=== PATIENT | female | born 1980 | race Caucasian/White ===

== ENCOUNTER → 2017-11-07 | Outpatient (CLI) | payer OTHER ==
[~2017-11-07] MED LIST: BCPILLS; LRT5 PO; NITR-5 PO; SERT25TA PO
== END | disposition home or self-care (01) ==
LOC: C.PAPS 14:07
PROVIDERS: ATTEND Obstetrics & Gynecology
DX: Z12.4 Encounter for screening for malignant neoplasm of cervix (principal)

== ENCOUNTER 2023-02-03 09:17 | Observation (INO) ==
[2023-02-03 09:46] LABS: POC Urine Bilirubin Negative (Negative); POC Urine Blood Negative (Negative); POC Urine Glucose Normal (Normal); POC Urine Ketones Negative (Negative); POC Urine Leukocytes Negative (Negative); POC Urine Nitrite Negative (Negative); POC Urine Protein Trace (Negative); POC Urine Urobilinogen Normal (Normal); POC Urine pH 5 (4.5-7.5)
[2023-02-03 10:02] LABS: Appearance Urine Clear (Clear); Bacteria Urine Automated Negative (Negative); Bilirubin Urine Negative (Negative); Blood Urine Negative (Negative); Color Urine Yellow; Epithelial Cell Urine Auto 20-30 /lpf (0-5); Glucose Urine UA Negative (Negative); Ketones Urine Negative (Negative); Leukocyte Esterase Urine Trace (Negative); Nitrite Urine Negative (Negative); Protein Urine Negative (Negative); RBC Urine Automated 0-4 /hpf (0-4); Specific Gravity Urine 1.008 (1.000-1.030); Urobilinogen Urine Negative (Negative); pH Urine 7.5 (4.5-7.5)
[2023-02-03] MEDS ORDERED: KETOROLAC 30 MG/ML VIAL IV ONE (10:34)
[2023-02-03] MEDS ORDERED: ONDANSETRON INJ 2 MG/ML 2 ML VIAL IV STA (10:34)
[2023-02-03 11:00] LABS: Hematocrit (blood only) 39.3 % (37.0-47.0); Hemoglobin 13.5 g/dl (12.0-16.0); Mean Corpuscular Hgb Conc 34.4 g/dL (32.0-36.0); Mean Corpuscular Volume 96.1 fL (80.0-100.0); Mean Platelet Volume 11.5 fL (9.4-12.4); Platelet Count 176 K/uL (130-400); RDW Coefficient of Variation 12.7 % (11.5-14.5); RDW Standard Deviation 44.8 fL (36.4-46.3); Red Blood Count 4.09 M/uL (4.20-5.40); White Blood Count 8.88 K/ul (4.8-10.8)
[2023-02-03 11:17] LABS: Albumin Globulin Ratio 1.3 (0.9-2); Albumin Level 4.2 gm/dl (3.4-5.0); BUN Creatinine Ratio 17.8 (10-20); Bilirubin,Total 0.8 mg/dl (0.2-1.0); Calcium 9.2 mg/dl (8.6-10.3); Creatinine Clr Calc Pharmacy 89.4 ml/min; Est GFR (African American) 116.9 ml/min; Est GFR (Non-African American) 100.9 ml/min; Globulin 3.2 gm/dl (2.5-4.0); Potassium 3.8 mmol/L (3.5-5.1); Total Protein 7.4 gm/dl (6.0-8.3)
[2023-02-03 11:18] LABS: Basophils # (auto) 0.03 K/uL (0-0.2); Basophils % (auto) 0.3 %; Eosinophils # (auto) 0.09 K/uL (0-0.50); Immature Granulocytes # (auto) 0.01 K/uL (0.01-0.20); Immature Granulocytes % (auto) 0.1 %; Lymphocytes # (auto) 0.23 K/uL (1.2-3.4); Lymphocytes % (auto) 2.6 %; Monocytes # (auto) 0.46 K/uL (0.11-0.59); Monocytes % (auto) 5.2 %; Neutrophils # (auto) 8.06 K/uL (1.40-6.50); Neutrophils % (auto) 90.8 %
--- NOTE | 2023-02-03 11:34 | CT Scan Report ---
ABDOMEN AND PELVIS CT WITHOUT CONTRAST CT DOSE: 569.46 mGy.cm HISTORY: Acute bilateral flank pain. eval right sided pyelo/ stone TECHNIQUE: Multiaxial CT images of the abdomen and pelvis were performed without contrast. A dose lo wering technique was utilized adhering to the principles of ALARA. COMPARISON STUDY: 10/30/2022 FINDINGS: The lung bases are clear. Trace pericardial effusion. The unenhanced liver, spleen, gallbla dder, and pancreas are within normal limits. 1.4 cm partially calcified hypodense right adrenal gland nodule is stable and likely benign. Mild urothelial thickening of the bilateral kidneys and ureters. Lateral perinephric and periureteral stranding. Punctate nonobstructing calculus of the interpolar right kidney. There is a new indetermi edwin 5 mm calcification in the left hemipelvis. Pelvic basin phleboliths. Urinary bladder wall thicke angie with partial distention. IUD of the mid uterus appears to be in satisfactory positioning. 3.1 x 2.7 cm right ovarian cyst. 2.9 cm left ovarian follicle. Trace free pelvic fluid. Colonic diverticulo sis. Normal appendix. No bowel wall thickening or obstruction. Remarkable soft tissues and osseous st ructures. IMPRESSION: 1. Bilateral urothelial thickening with perinephric stranding suspicious for an ascending urinary tra ct infection with pyelonephritis. Correlate with urinalysis. 2. Punctate right renal calculus. Additionally, there is a 5 mm left pelvic basin calcification near the distal left ureter which is likely a phlebolith. A distal ureteral calculus without obstructive u ropathy considered less likely. 3. No bowel obstruction or bowel wall thickening. 4. Colonic diverticulosis. ACT 112: Negative or not required by law. The above report was generated using voice recognition software. It may contain grammatical, syntax o r spelling errors. Electronically signed by: Dhiraj Cardoso M.D. 02/03/2023 11:32 AM
[2023-02-03] MEDS ORDERED: MAGNESIUM HYDROXIDE SUSP 30 ML UDC PO PRN (12:31)
[2023-02-03] MEDS ORDERED: ALUMINUM/MAGNESIUM SUSP 30 ML UDC PO PRN (12:31)
--- NOTE | 2023-02-03 12:38 | History & Physical Report ---
Date of Service February 03, 2023 Assessment & Plan (1) Pyelonephritis: (2) Bilateral flank pain: (3) Nausea: (4) Depression: (5) Tobacco use: Plan Ms. Mei presents with bladder pressure and constant urinary urgency, no pain with micturition, no burning, no visual hematuria; but outpatient urinalysis revealed microhematuria. Yesterday, she reports increased bladder pressure with dull achy pain in the right flank area with some radiation into her groin. Last Saturday, patient had UA as outpatient. Has taken Macrobid in October when he symptoms originally started. She has taken two days of Macrobid so far this time around. No leukocytosis and does not appear toxic. We will keep her NPO, start Cefepime Q12 and Pyridium PRN with pain and symptom control. Urine and blood cultures pending. Will consult Urology. Pyelonephritis: Bilateral flank pain: Nausea: Admit to Med/Surg Tele Known h/o Pyelonephritis; follows with [facility] Urology R > L flank pain Abdominal/pelvic CT: bilateral urothelial thickening with perinephric stranding suspicious for an ascending urinary tract infection with pyelonephritis. Correlate with urinalysis. Punctate right renal calculus. Additionally, there is a 5 mm left pelvic basin calcification near the distal left ureter which is likely a phlebolith. A distal ureteral calculus without obstructive uropathy considered less likely. No bowel obstruction or bowel wall thickening. Colonic diverticulosis. No leukocytosis; does not appear toxic Urine and blood cultures pending NPO for now cefepime every 12 for complicated UTI IVF @ 60mL/hour x2 bags Pyridium as needed Antiemetics as needed Urology consult placed Depression and anxiety: Takes Sertraline; continue Has medical marijuana for anxiety Tobacco Use: Smokes cigarettes 1 pack/day Recently stopped using Chantix as she felt it was contributing to her symptoms Receptive of nicotine patch; ordered Disposition: PCP: Dr. Michael CODE STATUS: Full code VTE prophylaxis: Lovenox SQ I spent a total of 87 minutes coordinating, documenting, and providing care for this patient excluding time spent in the performance of separately billed services. All of the aforementioned completed while collaborating with the assigned attending physician for a full treatment plan. Please see their addendum for further details. History of Present Illness Chief Complaint: pyelopnephritis Primary Care Provider: Fernanda Linn PA-C Ms. Mei is a 42 year old female that presented to the [facility] today with bladder pressure and constant urinary urgency, no pain with micturition, no burning, no visual hematuria; but outpatient urinalysis revealed microhematuria. Yesterday, she reports increased bladder pressure with dull achy pain in the right flank area with some radiation into her groin. Reports chills, but no reported fever. Denies nocturia, polyuria. Describes weak stream urination and delayed emptying and bladder retention. Last Saturday, patient had UA as outpatient. Has taken Macrobid in October when he symptoms originally started. She has taken two days of Macrobid so far as an outpatient. One episode of diarrhea a few days ago, otherwise normal bowel consistency. Patient has a known history of pyelonephritis and microscopic hematuria. She follows with [facility] urology with her last appointment on 01/25/2023. She was having unresolved recurrent urinary tract infections which has started back in August with pyelonephritis in October. Conservative measures have been recommended as an outpatient including increasing hydration, maintaining good hygiene, routine bowel regimen. Cystoscopy was discussed but not performed as of date. Patient denies MURPHY, dizziness, SOB, chest pain, palpitations, nausea, vomiting, diarrhea, visual or auditory changes, no recent falls or trauma. Pt did receive Torodol in the ED with relief. Today, abdominal and pelvic CT revealed bilateral urothelial thickening with perinephric stranding suspicious for an ascending urinary tract infection with pyelonephritis. Correlate with urinalysis. Punctate right renal calculus. Additionally, there is a 5 mm left pelvic basin calcification near the distal left ureter which is likely a phlebolith. A distal ureteral calculus without obstructive uropathy considered less likely. No bowel obstruction or bowel wall thickening. Colonic diverticulosis. No leukocytosis and does not appear toxic. We will keep her NPO, start Cefepime Q12 and Pyridium PRN with pain and symptom control. Urine and blood cultures pending. Will consult Urology. Pt currently smokes 1 ppd cigarettes. She uses medical marijuana for anxiety. She denies alcohol use. Pt recently discontinued using Chantix as she felt it may be contributing to her symptoms. Pt is sitting upright in her hospital bed in no apparent distress. She was accompanied by her , Murali, and is able to appropriately answer all questions. On examination, she Patient will be admitted to the hospital for further available and management. Allergies Allergy/AdvReac Type Severity Reaction Status Date / Time No Known Drug Allergies Allergy Verified 01/25/23 12:02 Home Medications Medication Instructions Recorded Confirmed Type levonorgestrel 21 mcg/24 hours (8 1 device intrauterine DIRECTED 03/26/19 02/03/23 History yrs) 52 mg intrauterine device (Mirena) sertraline 100 mg tablet 100 mg PO DAILY 09/24/22 02/03/23 History hydrocodone 5 mg-acetaminophen 325 1 - 2 tab PO Q6H PRN pain #20 tabs 10/30/22 02/03/23 Rx mg tablet ondansetron 4 mg disintegrating 4 mg PO Q6H PRN nausea and 10/30/22 02/03/23 Rx tablet vomiting #20 tabs nitrofurantoin 100 mg PO BID 7 days #14 caps 01/31/23 02/03/23 Rx monohydrate/macrocrystals 100 mg capsule (Macrobid) varenicline 1 mg tablet 1 mg PO DIRECTED 02/03/23 02/03/23 History Past Med/Surg History Medical History Anemia Anxiety Bronchitis Depression Nausea Tobacco use Surgical History History of dental surgery [place] teeth extracted Family History Father Bone cancer Prostate cancer Hypertension Sister Endometriosis Hypertension Aunt Breast cancer maternal Hypertension Mother Hypertension Other Alcoholism Depression Osteoporosis Denies family history of Ovarian cancer Colorectal cancer Social History Smoking Status: Current every day smoker Age Started Using Tobacco: 18; packs per day: 1; Do You Dip or Chew Tobacco: No; Hx Alcohol Use: Yes Preferred Language: Sinhala Communication Ability: Effective marital status: Current Living Situation: Spouse current occupational status: employed 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 Feels Safe at Home: Yes Review of Systems Review of Systems: Neuro: (-) Falls, trauma, slurred speech HEENT: (-) MURPHY, dizziness, dysphagia, visual or auditory changes CV: (-) CP, palpitations, swelling Resp: (-) SOB GI: (-) appetite changes, N/V/D, bowel changes : (+) urinary changes (-) Nocturia, (+) polyuria, (+) delayed emptying with some feelings of bladder retention Skin: (-) rashes Psych: (-) anxiety, depression Physical Exam Physical Exam: Neuro: AAOx4, PERRLA, no aphagia, memory changes, CNII-XII grossly intact HEENT: head normocephalic, moist mucus membranes CV: S1/S2, (-) M/G/R, (-) edema, cap refill < 3 seconds Resp: Lungs CTA in all rob. On RA GI: Abdomen S/NT/ND, Ax4 bowel sounds, (+) CVA tenderness on right Musculoskeletal: 5/5 B/L UE strength, 5/5 B/L LE strength. No gait disturbance Skin: (-) rashes , (-) erythema. Psych: euthymic mood Results & Data Results & Data Vital Signs (Past 12 Hours) Vital Signs Temp Pulse Pulse Resp BP BP Pulse Ox 02/03/23 12:06 66 02/03/23 10:50 75 20 122/66 98 02/03/23 10:40 98 02/03/23 09:24 37.1 C 84 20 120/73 100 O2 Del Method 02/03/23 12:06 02/03/23 10:50 Room Air 02/03/23 10:40 Room Air 02/03/23 09:24 Room Air Laboratory Results Short CBC 02/03/23 Range/Units 10:41 WBC 8.88 (4.8-10.8) K/ul Hgb 13.5 (12.0-16.0) g/dl Hct 39.3 (37.0-47.0) % Plt Count 176 (130-400) K/uL BMP 02/03/23 10:41 Sodium 137 Potassium 3.8 Chloride 105 Carbon Dioxide 25 BUN 13 Creatinine 0.73 Glucose 96 Calcium 9.2 Liver Function 02/03/23 Range/Units 10:41 Total Bilirubin 0.8 (0.2-1.0) mg/dl AST 12 L (13-39) U/L ALT 11 (7-52) U/L Alkaline Phosphatase 61 (34-104) U/L Albumin 4.2 (3.4-5.0) gm/dl Urine 07/09/23 Range/Units 09:36 Urine Color Yellow Urine Appearance Clear (Clear) Urine pH 7.5 (4.5-7.5) Ur Specific [place] 1.008 (1.000-1.030) Urine Protein Negative (Negative) Urine Glucose (UA) Negative (Negative) Diagnostic Findings Abdomen/Pelvis CT 02/03/23 10:[address] WITHOUT CONTRAST CT DOSE: 569.46 mGy.cm HISTORY: Acute bilateral flank pain. eval right sided pyelo/ stone TECHNIQUE: Multiaxial CT images of the abdomen and pelvis were performed without contrast. A dose lowering technique was utilized adhering to the principles of ALARA. COMPARISON STUDY: 10/30/2022 FINDINGS: The lung bases are clear. Trace pericardial effusion. The unenhanced liver, spleen, gallbladder, and pancreas are within normal limits. 1.4 cm partially calcified hypodense right adrenal gland nodule is stable and likely benign. Mild urothelial thickening of the bilateral kidneys and ureters. Lateral perinephric and periureteral stranding. Punctate nonobstructing calculus of the interpolar right kidney. There is a new indeterminate 5 mm calcification in the left hemipelvis. Pelvic basin phleboliths. Urinary bladder wall thickening with partial distention. IUD of the mid uterus appears to be in satisfactory positioning. 3.1 x 2.7 cm right ovarian cyst. 2.9 cm left ovarian follicle. Trace free pelvic fluid. Colonic diverticulosis. Normal appendix. No bowel wall thickening or obstruction. Remarkable soft tissues and osseous structures. IMPRESSION: 1. Bilateral urothelial thickening with perinephric stranding suspicious for an ascending urinary tract infection with pyelonephritis. Correlate with urinalysis. 2. Punctate right renal calculus. Additionally, there is a 5 mm left pelvic basin calcification near the distal left ureter which is likely a phlebolith. A distal ureteral calculus without obstructive uropathy considered less likely. 3. No bowel obstruction or bowel wall thickening. 4. Colonic diverticulosis. ACT 112: Negative or not required by law. The above report was generated using voice recognition software. It may contain grammatical, syntax or spelling errors. Electronically signed by: Dhiraj Cardoos M.D. 02/03/2023 11:32 AM Code Status & VTE Plan Code Status Full Code in the event of cardiac or respiratory arrest VTE Prophylaxis Plan VTE Prophylaxis will be ordered: Yes Supervising Physician Co-Signing Physician Notes Patient is a 42-year-old female with history of mood disorder and no other significant past medical history presents with history of flank pain predominantly on right side radiating to groin, bladder pressure, associated chills, weak urinary flow. Patient was evaluated by urology as outpatient and was started on Macrobid for possible UTI 2 days ago and was supposed to have elective cystoscopy for multiple UTIs since October. Please review HPI for complete details of presentation. On exam patient is moderately built and nourished, no apparent distress, normocephalic/atraumatic, EOMI, normal breath sounds, clear to auscultation, S1-S2, no murmur, no pedal edema, abdomen soft, right flank tenderness present, alert, awake, oriented, grossly no focal deficits. I personally reviewed imaging studies, blood work. Acute pyelonephritis, distal ureteral calculi without obstructive uropathy. Started on broad-spectrum antibiotics, IV fluids pain control. Urology consulted. Obtain blood cultures. I personally reviewed the record. Patient is interviewed and examined at bedside. Patient's care is coordinated with Mary BAUGH. Please refer to the documentation above for details of patient's presentation and for discussion of other issues.
[2023-02-03] MEDS ORDERED: PHENAZOPYRIDINE HCL 200 MG TAB PO PRN (12:57)
--- NOTE | 2023-02-03 13:25 | Emergency Department Note ---
Impression & Plan Pyelonephritis Admit to the [facility] ED Provider Note NAME: DIONI SLAUGHTER AGE: 42 SEX: F ARRIVES VIA: Walk-In INFORMANT: Patient and her significant other ED PROVIDER(S): Jen Leyva DO CHIEF COMPLAINT: Nausea and right-sided back PLAN: Disposition: Admit to the [facility] Condition: Good MEDICAL DECISION MAKING: This is a 42-year-old female patient who presents to the emergency department with nausea, chills and right-sided back pain despite taking Macrobid for a d iagnosed urinary tract infection. Patient has no significant leukocytosis or anemia. Renal function tests were normal. There is no evidence of acute kidney injury. CT scan shows evidence of bilateral a sending urinary tract infection into both ureters. Patient will require IV antibiotics as she is failing outpatient oral antibiotic treatment. Patient was treated with IV fluids and IV pain medication and I discussed the case with the [facility] and they will choose IV antibiotic coverage. Triage Nursing notes reviewed and agree with them. [Additional history obtained from] her significant other who is at the bedside External medical records were reviewed including urology notes as an outpatient Vital Signs: reviewed and unremarkable Differential diagnosis: Sepsis, pyelonephritis, cystitis ER treatment provided: IV normal saline IV Toradol Diagnostics interpreted by me: Cardiac Monitoring: Normal sinus rhythm at a rate of 74 Laboratory studies: See below Imaging studies: As per radiology CT scan of the abdomen/pelvis: See report HPI: 42/F arrives for evaluation of nausea and right-sided back. Patient was diagnosed with a UTI 2 days ago and started on Macrobid by urology. She was evaluated by urology because of recurrent urinary tract infections PAST MEDICAL HISTORY:Frequent UTIs since October PAST SURGICAL HISTORY:See Below FAMILY HISTORY:See Below SOCIAL HISTORY:See Below HOME MEDICATIONS: See list ALLERGIES: None VITALS:See Below PHYSICAL EXAMINATION: HEENT: Head - normocephalic and atraumatic. Pupils are equal, round, and reac tive to light. Extraocular eye muscles are intact, and sclera are anicteric. Nose - moist nasal mucosa without discharge. Mouth - moist buccal mucosa. Oropharynx is nonerythematous and there is no tonsillar exudate or edema noted. Neck: Supple; no cervical lymphadenopathy Heart: Regular rate and rhythm. There is a normal S1 and S2 with no murmurs, clicks, or gallops appreciated. Lungs: Clear to auscultation bilaterally with no wheezes, rales, or rhonchi. Abdomen: Soft, completely nontender, nondistended, with good bowel sounds. There are no palpable pulsatile masses or hepatosplenomegaly. There is no guarding, rigidity, or rebound noted. Extremities: No evidence of cyanosis, clubbing, or edema. There are easily palpable peripheral pulses. Skin: warm and dry with good turgor and no rashes. Back: Mild/moderate right CVA tenderness ED COURSE: Times/Reassessments: 9:50: Patient was evaluated in room A-3. Complete history and physical was performed. An IV lock was initiated and labs were drawn as above. Urine specimen was collected. The patient was bolused with IV normal saline and given a dose of IV Toradol for her right-sided back pain. Patient went for CT scan of the abdomen/pelvis. I reviewed the results with the patient And her significant other. I discussed the case with the [facility] and they will evaluate for further management and order IV antibiotics. Jen Leyva DO Past Med/Surg History Medical History Anemia Anxiety Bronchitis Depression Nausea Tobacco use Surgical History History of dental surgery [place] teeth extracted Family History Father Bone cancer Prostate cancer Hypertension Sister Endometriosis Hypertension Aunt Breast cancer maternal Hypertension Mother Hypertension Other Alcoholism Depression Osteoporosis Denies family history of Ovarian cancer Colorectal cancer Social History Smoking Status: Current every day smoker Age Started Using Tobacco: 18; packs per day: 1; Do You Dip or Chew Tobacco: No; Hx Alcohol Use: No Preferred Language: [place] Island[place] Communication Ability: Effective Clinical Lab Clerk Required: No Beliefs That Will Affect Care: None marital status: Current Living Situation: Spouse current occupational status: employed 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 Feels Safe at Home: Yes Safety Concerns: Feels Safe At This Time Allergies Allergies Allergy/AdvReac Type Severity Reaction Status Date / Time No Known Drug Allergies Allergy Verified 01/25/23 12:02 Home Meds Home Medications Medication Instructions Recorded Confirmed levonorgestrel 21 mcg/24 hours (8 1 device intrauterine DIRECTED 03/26/19 02/03/23 yrs) 52 mg intrauterine device (Mirena) sertraline 100 mg tablet 100 mg PO DAILY 09/24/22 02/03/23 varenicline 1 mg tablet 1 mg PO DIRECTED 02/03/23 02/03/23 Previous Rx's Medication Instructions Recorded hydrocodone 5 mg-acetaminophen 325 1 - 2 tab PO Q6H PRN pain #20 tabs 10/30/22 mg tablet ondansetron 4 mg disintegrating 4 mg PO Q6H PRN nausea and 10/30/22 tablet vomiting #20 tabs nitrofurantoin 100 mg PO BID 7 days #14 caps 01/31/23 monohydrate/macrocrystals 100 mg capsule (Macrobid) Results & Data (ED) Vital Signs Vital Signs - 24 hr 02/03/23 09:24 02/03/23 10:40 02/03/23 10:50 Temperature 37.1 C Temperature Source Temporal Artery Scan Pulse Rate 84 Pulse Rate [Apical] 75 Respiratory Rate 20 20 Respiratory Effort / Characteristics Non-Labored Respiratory Depth Normal Normal Blood Pressure 120/73 Blood Pressure [Right Arm] 122/66 Blood Pressure Mean 88 Blood Pressure Mean [Right Arm] 84 Blood Pressure Position Sitting Pulse Oximetry 100 98 98 Oxygen Delivery Method Room Air Room Air Room Air Sepsis Recent Fever Within 48 Hours No Sepsis New/Unexplained Change in Mental Status No Sepsis Action Taken by Nursing No Action Required 02/03/23 12:06 02/03/23 12:30 Temperature Temperature Source Pulse Rate 66 Pulse Rate [Apical] 73 Respiratory Rate 18 Respiratory Effort / Characteristics Respiratory Depth Blood Pressure Blood Pressure [Right Arm] 100/54 L Blood Pressure Mean Blood Pressure Mean [Right Arm] 69 Blood Pressure Position Pulse Oximetry 97 Oxygen Delivery Method Room Air Sepsis Recent Fever Within 48 Hours Sepsis New/Unexplained Change in Mental Status Sepsis Action Taken by Nursing Laboratory Data 02/03/23 10:41 02/03/23 10:41 Lab Results 02/03/23 02/03/23 02/03/23 Range/Units 09:36 09:36 09:36 WBC (4.8-10.8) K/ul RBC (4.20-5.40) M/uL Hgb (12.0-16.0) g/dl Hct (37.0-47.0) % MCV (80.0-100.0) fL MCH (25.0-34.0) pg MCHC (32.0-36.0) g/dL RDW Std Deviation (36.4-46.3) fL RDW Coeff of Naif (11.5-14.5) % Plt Count (130-400) K/uL MPV (9.4-12.4) fL Immature Gran % (Auto) % Neut % (Auto) % Lymph % (Auto) % Morton % (Auto) % Eos % (Auto) % Baso % (Auto) % Neut # (Auto) (1.40-6.50) K/uL Lymph # (Auto) (1.2-3.4) K/uL Morton # (Auto) (0.11-0.59) K/uL Eos # (Auto) (0-0.50) K/uL Baso # (Auto) (0-0.2) K/uL Immature Gran # (Auto) (0.01-0.20) K/uL Sodium (136-145) mmol/L Potassium (3.5-5.1) mmol/L Chloride (98-107) mmol/L Carbon Dioxide (21-32) mmol/L Anion Gap (3-11) BUN (6-23) mg/dl Creatinine (0.6-1.2) mg/dl Est Cr Clr Drug Dosing ml/min Est GFR ( Amer) ml/min Est GFR (Non-Af Amer) ml/min BUN/Creatinine Ratio (10-20) Glucose (70-99(Fasting)) mg/dl Calcium (8.6-10.3) mg/dl Total Bilirubin (0.2-1.0) mg/dl AST (13-39) U/L ALT (7-52) U/L Alkaline Phosphatase (34-104) U/L Total Protein (6.0-8.3) gm/dl Albumin (3.4-5.0) gm/dl Globulin (2.5-4.0) gm/dl Albumin/Globulin Ratio (0.9-2) Lipase (11-82) U/L Urine Color Yellow Urine Appearance Clear (Clear) Urine pH 7.5 (4.5-7.5) POC Urine pH 5 (4.5-7.5) Ur Specific [place] 1.008 (1.000-1.030) Urine Protein Negative (Negative) POC Urine Protein Trace H (Negative) Urine Glucose (UA) Negative (Negative) POC Ur Glucose (UA) Normal (Normal) Urine Ketones Negative (Negative) POC Urine Ketones Negative (Negative) Urine Blood Negative (Negative) POC Urine Blood Negative (Negative) Urine Nitrite Negative (Negative) POC Urine Nitrite Negative (Negative) Urine Bilirubin Negative (Negative) POC Urine Bilirubin Negative (Negative) Urine Urobilinogen Negative (Negative) POC Urine Urobilinogen Normal (Normal) Ur Leukocyte Esterase Trace H (Negative) POC U Leukocyte Esteras Negative (Negative) Urine WBC (Auto) 1-5 (0-5) /hpf Urine RBC (Auto) 0-4 (0-4) /hpf U Hyaline Cast (Auto) 1-5 (0-5) /lpf U Epithel Cells (Auto) 20-30 H (0-5) /lpf Urine Bacteria (Auto) Negative (Negative) POC Ur Test NEG (NEG) SARS-CoV-2, RNA, NAAT (NEGATIVE) 02/03/23 02/03/23 02/03/23 Range/Units 10:41 10:41 13:50 WBC 8.88 (4.8-10.8) K/ul RBC 4.09 L (4.20-5.40) M/uL Hgb 13.5 (12.0-16.0) g/dl Hct 39.3 (37.0-47.0) % MCV 96.1 (80.0-100.0) fL MCH 33.0 (25.0-34.0) pg MCHC 34.4 (32.0-36.0) g/dL RDW Std Deviation 44.8 (36.4-46.3) fL RDW Coeff of Naif 12.7 (11.5-14.5) % Plt Count 176 (130-400) K/uL MPV 11.5 (9.4-12.4) fL Immature Gran % (Auto) 0.1 % Neut % (Auto) 90.8 % Lymph % (Auto) 2.6 % Morton % (Auto) 5.2 % Eos % (Auto) 1.0 % Baso % (Auto) 0.3 % Neut # (Auto) 8.06 H (1.40-6.50) K/uL Lymph # (Auto) 0.23 L (1.2-3.4) K/uL Morton # (Auto) 0.46 (0.11-0.59) K/uL Eos # (Auto) 0.09 (0-0.50) K/uL Baso # (Auto) 0.03 (0-0.2) K/uL Immature Gran # (Auto) 0.01 (0.01-0.20) K/uL Sodium 137 (136-145) mmol/L Potassium 3.8 (3.5-5.1) mmol/L Chloride 105 (98-107) mmol/L Carbon Dioxide 25 (21-32) mmol/L Anion Gap 7 (3-11) BUN 13 (6-23) mg/dl Creatinine 0.73 (0.6-1.2) mg/dl Est Cr Clr Drug Dosing 89.4 ml/min Est GFR ( Amer) 116.9 ml/min Est GFR (Non-Af Amer) 100.9 ml/min BUN/Creatinine Ratio 17.8 (10-20) Glucose 96 (70-99(Fasting)) mg/dl Calcium 9.2 (8.6-10.3) mg/dl Total Bilirubin 0.8 (0.2-1.0) mg/dl AST 12 L (13-39) U/L ALT 11 (7-52) U/L Alkaline Phosphatase 61 (34-104) U/L Total Protein 7.4 (6.0-8.3) gm/dl Albumin 4.2 (3.4-5.0) gm/dl Globulin 3.2 (2.5-4.0) gm/dl Albumin/Globulin Ratio 1.3 (0.9-2) Lipase 12 (11-82) U/L Urine Color Urine Appearance (Clear) Urine pH (4.5-7.5) POC Urine pH (4.5-7.5) Ur Specific [place] (1.000-1.030) Urine Protein (Negative) POC Urine Protein (Negative) Urine Glucose (UA) (Negative) POC Ur Glucose (UA) (Normal) Urine Ketones (Negative) POC Urine Ketones (Negative) Urine Blood (Negative) POC Urine Blood (Negative) Urine Nitrite (Negative) POC Urine Nitrite (Negative) Urine Bilirubin (Negative) POC Urine Bilirubin (Negative) Urine Urobilinogen (Negative) POC Urine Urobilinogen (Normal) Ur Leukocyte Esterase (Negative) POC U Leukocyte Esteras (Negative) Urine WBC (Auto) (0-5) /hpf Urine RBC (Auto) (0-4) /hpf U Hyaline Cast (Auto) (0-5) /lpf U Epithel Cells (Auto) (0-5) /lpf Urine Bacteria (Auto) (Negative) POC Ur Test (NEG) SARS-CoV-2, RNA, NAAT NEGATIVE (NEGATIVE) Administered Medications Enoxaparin Sodium (Enoxaparin Inj 40 Mg/0.4 Ml Syr) 40 mg SQ QAM [facility] Stop: 03/05/23 13:14 Last Admin: 02/03/23 14:24 Dose: 40 mg Documented By: TIGRE Sodium Chloride (Nss 1000ml) 1,000 mls @ 100 mls/hr IV .Q10H [facility] Stop: 02/04/23 09:08 Last Admin: 02/03/23 14:24 Dose: 100 mls/hr Documented By: TIGRE Cefepime HCl 2,000 mg/ Syringe 20 mls @ 5 mls/min IV Q12H [facility]; Protocol Stop: 02/13/23 13:29 Last Admin: 02/03/23 14:24 Dose: 5 mls/min Documented By: TIGRE Nicotine (Nicotine 14 Mg/24 Hr Patch) 14 mg TD QAM [facility] Stop: 03/05/23 13:14 Last Admin: 02/03/23 14:23 Dose: 14 mg Documented By: TIGRE Discontinued Medications Ketorolac Tromethamine (Ketorolac 30 Mg/Ml Vial) 30 mg IV NOW ONE Stop: 02/03/23 10:35 Last Admin: 02/03/23 10:50 Dose: 30 mg Documented By: RICKY Ondansetron HCl (Ondansetron Inj 2 Mg/Ml 2 Ml Vial) 4 mg IV NOW STA Stop: 02/03/23 10:35 Last Admin: 02/03/23 10:51 Dose: 4 mg Documented By: RICKY Imaging Data Radiologist's Impression: Abdomen/Pelvis CT 02/03/23 10:[address] WITHOUT CONTRAST CT DOSE: 569.46 mGy.cm HISTORY: Acute bilateral flank pain. eval right sided pyelo/ stone TECHNIQUE: Multiaxial CT images of the abdomen and pelvis were performed without contrast. A dose lowering technique was utilized adhering to the principles of ALARA. COMPARISON STUDY: 10/30/2022 FINDINGS: The lung bases are clear. Trace pericardial effusion. The unenhanced liver, spleen, gallbladder, and pancreas are within normal limits. 1.4 cm partially calcified hypodense right adrenal gland nodule is stable and likely benign. Mild urothelial thickening of the bilateral kidneys and ureters. Lateral perinephric and periureteral stranding. Punctate nonobstructing calculus of the interpolar right kidney. There is a new indeterminate 5 mm calcification in the left hemipelvis. Pelvic basin phleboliths. Urinary bladder wall thickening with partial distention. IUD of the mid uterus appears to be in satisfactory positioning. 3.1 x 2.7 cm right ovarian cyst. 2.9 cm left ovarian follicle. Trace free pelvic fluid. Colonic diverticulosis. Normal appendix. No bowel wall thickening or obstruction. Remarkable soft tissues and osseous structures. IMPRESSION: 1. Bilateral urothelial thickening with perinephric stranding suspicious for an ascending urinary tract infection with pyelonephritis. Correlate with urinalysis. 2. Punctate right renal calculus. Additionally, there is a 5 mm left pelvic basin calcification near the distal left ureter which is likely a phlebolith. A distal ureteral calculus without obstructive uropathy considered less likely. 3. No bowel obstruction or bowel wall thickening. 4. Colonic diverticulosis. ACT 112: Negative or not required by law. The above report was generated using voice recognition software. It may contain grammatical, syntax or spelling errors. Electronically signed by: Dhiraj Cardoso M.D. 02/03/2023 11:32 AM Discharge Plan Visit Data Chief Complaint: Urinary Symptoms Stated Complaint: UTI - WORSENING SYMPTOMS ED Provider: Jen Leyav Discharge Problem: Pyelonephritis Patient Disposition: Admitted As Inpatient Discharge Instructions Interventions: ED Discharge Assessment Last Done: 02/03/23 14:53
[2023-02-03] MEDS: NICOTINE 14 MG/24 HR PATCH TD SCH (14:23)
[2023-02-03] MEDS: SODIUM CHLORIDE 0.9% 1000ML 1,000 ML IV SCH (14:24)
[2023-02-03] MEDS: CEFEPIME 2,000 MG in SYRINGE 0 ML IV SCH (14:24)
[2023-02-03] MEDS: ENOXAPARIN INJ 40 MG/0.4 ML SYR SQ SCH (14:24)
--- NOTE | 2023-02-03 19:40 | Urology Consultation ---
Date of Consultation February 03, 2023 Assessment & Plan (1) Nephrolithiasis: Plan Distal left ureteral calculus; history of UTI-like symptoms and question of possible pyelonephritis earlier this year Lengthy discussion today with the patient and her She is currently hemodynamically stable I believe the best plan would be to address her stone first Given the lack of current clinical signs and symptoms of pyelonephritis, I would be interested to see if her symptoms improve after stone treatment It is interesting that the majority of her symptoms seem to be right-sided despite her left ureteral calculus, I have explained that there is a possibility that she could still harbor underlying inflammation of the right collecting system She has been on Keflex and MacrobidI have discussed that neither of those has particularly excellent urinary tissue penetration and even after stone treatment she may require an extended course of antibiotics that has better penetrationCipro, Bactrim History of Present Illness Attending Physician: Daniel Coe MD History of Present Illness 42-year-old female who relates an interesting urological history Over the past several months she has been experiencing intermittent urinary tract infection-like symptoms as well as concern for possible ascending infection with associated fevers and chills She was seen in the emergency room in October and treated with antibiotics for presumed pyelonephritis She thought she had improved, however she had recurrence of urinary tract infection-like symptoms shortly thereafter Was then treated again with some improvement She had her first urological evaluation 48 hours agothe plan at that time was to complete a full work-up including imaging and cystoscopy, however, she developed significant symptoms and presented to the emergency room In October she had a CT which showed some urothelial thickening and minor inflammation She also appeared to have a mid left ureteral calculus at that time, however, she has bilateral ovarian cysts and following her ureters was somewhat challengingI suspect the stone was simply missed on that CT Repeat CT now shows distal migration of that left ureteral calculus Her UA is relatively unremarkable She does not have a leukocytosis She is hemodynamically stable and afebrile Her creatinine is appropriate She is currently on cefepime Allergies Allergy/AdvReac Type Severity Reaction Status Date / Time No Known Drug Allergies Allergy Verified 01/25/23 12:02 Home Medications Medication Instructions Recorded Confirmed Type levonorgestrel 21 mcg/24 hours (8 1 device intrauterine DIRECTED 03/26/19 02/03/23 History yrs) 52 mg intrauterine device (Mirena) sertraline 100 mg tablet 100 mg PO DAILY 09/24/22 02/03/23 History hydrocodone 5 mg-acetaminophen 325 1 - 2 tab PO Q6H PRN pain #20 tabs 10/30/22 02/03/23 Rx mg tablet ondansetron 4 mg disintegrating 4 mg PO Q6H PRN nausea and 10/30/22 02/03/23 Rx tablet vomiting #20 tabs nitrofurantoin 100 mg PO BID 7 days #14 caps 01/31/23 02/03/23 Rx monohydrate/macrocrystals 100 mg capsule (Macrobid) varenicline 1 mg tablet 1 mg PO DIRECTED 02/03/23 02/03/23 History Patient History Medical History Anemia Anxiety Bronchitis Depression Nausea Tobacco use Surgical History History of dental surgery [place] teeth extracted Family History Father Bone cancer Prostate cancer Hypertension Sister Endometriosis Hypertension Aunt Breast cancer maternal Hypertension Mother Hypertension Other Alcoholism Depression Osteoporosis Denies family history of Ovarian cancer Colorectal cancer Social History Smoking Status: Current every day smoker Age Started Using Tobacco: 18; packs per day: 1; Do You Dip or Chew Tobacco: No; Hx Alcohol Use: No Preferred Language: [place] Communication Ability: Effective Senior Network Engineer Required: No Beliefs That Will Affect Care: None marital status: Current Living Situation: Spouse current occupational status: employed 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 Feels Safe at Home: Yes Safety Concerns: Feels Safe At This Time Physical Exam Physical Exam: Right greater than left CVA tenderness and suprapubic tenderness Constitutional: well developed and well nourished Respiratory: no respiratory distress Cardiovascular: Extremities: no pedal edema Gastrointestinal (Abdomen): Inspection/Auscultation: abdomen normal to inspection Results & Data Vital Signs (Past 12 Hours) Vital Signs Temp Pulse Pulse Resp BP BP Pulse Ox 02/03/23 15:51 71 02/03/23 15:48 02/03/23 15:28 37.2 C 64 18 115/67 99 02/03/23 14:10 62 18 103/66 100 02/03/23 12:30 73 18 100/54 L 97 02/03/23 12:06 66 02/03/23 10:50 75 20 122/66 98 02/03/23 10:40 98 02/03/23 09:24 37.1 C 84 20 120/73 100 O2 Del Method 02/03/23 15:51 02/03/23 15:48 Room Air 02/03/23 15:28 Room Air 02/03/23 14:10 Room Air 02/03/23 12:30 Room Air 02/03/23 12:06 02/03/23 10:50 Room Air 02/03/23 10:40 Room Air 02/03/23 09:24 Room Air PG Care Time/CCT Total # of Minutes Spent Total Time Spent with Patient: Total time spent is greater than 50% in coordination of care (as documented) at patient's floor/unit and/or counseling patient: Coding Level of Care Code 19968 IN/OBS CONSULT LVL 4,60M Diagnoses Nephrolithiasis N20.0
[2023-02-03] MEDS: KETOROLAC TROMETHAMINE 15 MG/ML VIAL IV PRN (20:53)
[2023-02-03] MEDS ORDERED: HEPARIN SOD 5,000 UNIT/0.5 ML VIAL SQ SCH (21:00)
[2023-02-04] MEDS: SODIUM CHLORIDE 0.9% 1000ML 1,000 ML IV SCH (01:46)
[2023-02-04] MEDS: CEFEPIME 2,000 MG in SYRINGE 0 ML IV SCH ×2 (01:47→12:51)
[2023-02-04] MEDS: KETOROLAC TROMETHAMINE 15 MG/ML VIAL IV PRN ×2 (04:07→20:39)
[2023-02-04 06:12] LABS: Hematocrit (blood only) 32.6 % (37.0-47.0); Hemoglobin 11.1 g/dl (12.0-16.0); Mean Corpuscular Hemoglobin 32.7 pg (25.0-34.0); Mean Corpuscular Volume 96.2 fL (80.0-100.0); Mean Platelet Volume 12.2 fL (9.4-12.4); Platelet Count 139 K/uL (130-400); RDW Coefficient of Variation 12.7 % (11.5-14.5); RDW Standard Deviation 44.9 fL (36.4-46.3); Red Blood Count 3.39 M/uL (4.20-5.40); White Blood Count 5.26 K/ul (4.8-10.8)
[2023-02-04 06:28] LABS: Albumin Globulin Ratio 1.4 (0.9-2); Albumin Level 3.5 gm/dl (3.4-5.0); BUN Creatinine Ratio 29.7 (10-20); Bilirubin,Total 0.5 mg/dl (0.2-1.0); Calcium 8.2 mg/dl (8.6-10.3); Est GFR (African American) 126.7 ml/min; Est GFR (Non-African American) 109.3 ml/min; Globulin 2.5 gm/dl (2.5-4.0); Potassium 3.6 mmol/L (3.5-5.1)
[2023-02-04] MEDS: NICOTINE 14 MG/24 HR PATCH TD SCH (08:44)
[2023-02-04] MEDS: SERTRALINE HCL 100 MG TABLET PO SCH (08:44)
[2023-02-04] MEDS: ENOXAPARIN INJ 40 MG/0.4 ML SYR SQ SCH (10:23)
--- NOTE | 2023-02-04 10:29 | Urology Progress Note ---
Date of Service February 04, 2023 Assessment & Plan (1) Nephrolithiasis: (2) Pyelonephritis: (3) Flank pain: (4) Painful urination: Plan 42yo/F admitted with bladder/flank pain and UTI like symptoms. CT abdomen pelvis demonstrated bilateral urothelial thickening with perinephric stranding suspicious for ascending UTI with pyelonephritis, punctate right renal stone, 5mm distal left ureteral stone. She is afebrile, hemodynamically stable. Labs show no leukocytosis and normal renal function. Urinalysis without signs of infection or blood. Urine and blood cultures are pending. She is on IV cefepime. The majority of her symptoms seem to be right-sided despite her left ureteral stone. We discussed possibility of underlying inflammation of the right collecting system given her recurrent infections. We discussed acute stone management with cystoscopy, stent placement, possible stone treatment. Discussed Ureteroscopy with extraction and/or laser lithotripsy. Risks and benefits were discussed. Stone free rates were also discussed as well as possibility of multiple procedures. Ureteral stents were discussed as well as post-operative issues and pain management. We also discussed evaluation on the right side given her symptoms. Discussed possible stent placement depending on findings. All questions were answered. We will plan to proceed to OR today for cystoscopy, bilateral retrograde pyelogram, possible bilateral ureteral stent placement, possible ureteroscopy, laser lithotripsy/stone treatment depending on findings. Risks and benefits to be discussed with patient by Dr. Baldwin. Covered with scheduled IV cefepime. Urology will follow. ATTENDING NOTE: Independently examined, interviewed, and evaluated. Agree with note as above. Patient has recurrent issues with infection. Has possibility of stone within the ureter on the left. Has been having increasing flank pain and discomfort. Majority of discomfort and issues are happening on the right side. Does have small stones in the right kidney. No signs of major obstruction. Reviewed extensively options. Discussed ongoing issues. White count was 5.26. Creatinine 0.64. Discussed extensively different options moving forward including possible intervention discussed cystoscopy. Discussed ureteroscopy. Discussed other alternatives. Imaging was reviewed interpreted by myself. Findings of possible stone within the left ureter with additional stones in bilateral kidney. Risks and benefits discussed at length for procedure. These include bleeding, infection, injury to surrounding tissues or organs, and risks associated with anesthesia. Patient states understanding and agrees to proceed. Will sign consent and Proceed Plan for cystoscopy with possible bilateral ureteroscopy and stone treatment. Admission and Anticipated Discharge Date Admission Date: February 03, 2023 Subjective Patient examined at bedside this AM. Awake, resting in bed on arrival. No acute distress. Denies fevers, chills, nausea, vomiting. Has been NPO. Still with right-sided pain. Review of Systems Constitutional: as per Subjective / HPI Gastrointestinal: as per Subjective / HPI Genitourinary: as per Subjective / HPI Physical Exam Constitutional: well developed and well nourished; no acute distress Respiratory: normal respiratory effort; no respiratory distress and no labored breathing Skin: No visible rashes or lesions to exposed skin areas Neurologic: moves all extremities and awake Psychiatric: A+Ox3, euthymic affect Results & Data Vital Signs (Past 12 Hours) Vital Signs Temp Pulse Pulse Resp BP Pulse Ox O2 Del Method 02/04/23 07:00 36.8 C 73 18 94/63 L 98 Room Air 02/04/23 07:24 65 02/04/23 04:12 36.6 C 71 18 119/70 100 Room Air 02/03/23 22:00 64 02/03/23 22:00 36.6 C 67 18 110/69 97 Room Air PG Care Time/CCT Total # of Minutes Spent Total Time Spent with Patient: Total time spent is greater than 50% in coordination of care (as documented) at patient's floor/unit and/or counseling patient: Coding Level of Care Code 91286 SUB INP/OBS CARE 2/35MIN Diagnoses Nephrolithiasis N20.0 Pyelonephritis N12 Flank pain R10.9 Painful urination R30.9
--- NOTE | 2023-02-04 13:15 | Hospitalist Progress Note ---
Date of Service February 04, 2023 Assessment & Plan (1) Pyelonephritis: (2) Bilateral flank pain: (3) Nausea: (4) Depression: (5) Tobacco use: Plan Ms. Mei presents with bladder pressure and constant urinary urgency, no pain with micturition, no burning, no visual hematuria; but outpatient urinalysis revealed microhematuria. Yesterday, she reports increased bladder pressure with dull achy pain in the right flank area with some radiation into her groin. Last Saturday, patient had UA as outpatient. Has taken Macrobid in October when he symptoms originally started. She has taken two days of Macrobid so far this time around. No leukocytosis and does not appear toxic. We will keep her NPO, start Cefepime Q12 and Pyridium PRN with pain and symptom control. Urine and blood cultures pending. Will consult Urology. Possible pyelonephritis: Bilateral flank pain: Nausea: Admit to Med/Surg Tele Known h/o Pyelonephritis; follows with [facility] [place] Urology R > L flank pain Abdominal/pelvic CT: bilateral urothelial thickening with perinephric stranding suspicious for an ascending urinary tract infection with pyelonephritis. Correlate with urinalysis. Punctate right renal calculus. Additionally, there is a 5 mm left pelvic basin calcification near the distal left ureter which is likely a phlebolith. A distal ureteral calculus without obstructive uropathy considered less likely. No bowel obstruction or bowel wall thickening. Colonic diverticulosis. No leukocytosis; does not appear toxic Urine and blood cultures pending NPO for now cefepime every 12 for complicated UTI ,IVF @ 60mL/hour x2 bags ,Pyridium as needed and antiemetics as needed Continue current antibiotic for now Appreciate urology input and recommendation Plan for cystoscopy, bilateral retrograde pyelogram, possible stent bilateral and possible ureteroscopy and possible laser and stone treatment 1723 Awaiting further recommendation from urologist after the procedure Depression and anxiety: Takes Sertraline; continue Has medical marijuana for anxiety Remains stable without any symptoms of delirium and her anxiety Tobacco Use: Smokes cigarettes 1 pack/day Recently stopped using Chantix as she felt it was contributing to her symptoms Receptive of nicotine patch; ordered Disposition: PCP: Dr. Michael CODE STATUS: Full code VTE prophylaxis: Lovenox SQ Admission and Anticipated Discharge Date Admission Date: February 03, 2023 Subjective 02/04/2023 The patient was seen and examined in medical telemetry unit She feels a little better but is still has right lower back pain Has had 1 episode of nausea but no vomiting No fever and no chills and denies any urinary symptoms or hematuria Review of Systems Review of Systems: All systems reviewed and are unremarkable except as noted below Physical Exam Physical Exam: Lying in bed comfortably Constitutional: + ill appearing and average body habitus Eyes: PERRL, conjunctivae normal, anicteric sclerae ENMT: external ear and nose normal, oropharynx normal Neck: trachea midline, no thyromegaly Respiratory: no respiratory distress Auscultation: lungs clear to auscultation bilaterally Cardiovascular: Rate/Rhythm: regular rate and regular rhythm; not tachycardic Heart Sounds: normal S1 and normal S2; no murmur Extremities: no edema Gastrointestinal (Abdomen): Inspection/Auscultation: normal bowel sounds; abdomen not distended Percussion/Palpation: + abdomen tender (Tender right renal angle) and abdomen soft Musculoskeletal: No acute arthritis involving any joint Neurologic: normal touch/pain/proprioception and moves all extremities; no focal motor deficits Psychiatric: A+Ox3, euthymic affect Lymphatic: no cervical or axillary lymphadenopathy Results & Data Results & Data Vital Signs (Past 12 Hours) Vital Signs Temp Pulse Pulse Resp BP Pulse Ox O2 Del Method 02/04/23 08:00 36.8 C 69 18 103/68 99 Room Air 02/04/23 07:00 36.8 C 73 18 94/63 L 98 Room Air 02/04/23 07:24 65 02/04/23 04:12 36.6 C 71 18 119/70 100 Room Air Laboratory Results Short CBC 02/04/23 Range/Units 05:50 WBC 5.26 (4.8-10.8) K/ul Hgb 11.1 L (12.0-16.0) g/dl Hct 32.6 L (37.0-47.0) % Plt Count 139 (130-400) K/uL BMP 02/04/23 05:50 Sodium 137 Potassium 3.6 Chloride 110 H Carbon Dioxide 22 BUN 19 Creatinine 0.64 Glucose 81 Calcium 8.2 L Liver Function 02/04/23 Range/Units 05:50 Total Bilirubin 0.5 (0.2-1.0) mg/dl AST 9 L (13-39) U/L ALT 8 (7-52) U/L Alkaline Phosphatase 45 (34-104) U/L Albumin 3.5 (3.4-5.0) gm/dl Medications Administered Current Inpatient Medications Acetaminophen (Acetaminophen 325 Mg Tab) 650 mg PO Q4H PRN PRN Reason: Pain or Fever Stop: 03/05/23 12:30 Al Hydrox/Mg Hydrox/Simethicone (Aluminum/Magnesium Susp 30 Ml Udc) 15 ml PO Q4H PRN PRN Reason: Dyspepsia Stop: 03/05/23 12:30 Last Admin: 02/04/23 11:11 Dose: 15 ml Enoxaparin Sodium (Enoxaparin Inj 40 Mg/0.4 Ml Syr) 40 mg SQ QAM [facility] Stop: 03/05/23 13:14 Last Admin: 02/04/23 10:23 Dose: Not Given Cefepime HCl 2,000 mg/ Syringe 20 mls @ 5 mls/min IV Q12H [facility]; Protocol Stop: 02/13/23 13:29 Last Admin: 02/04/23 12:51 Dose: 5 mls/min Ketorolac Tromethamine (Ketorolac Tromethamine 15 Mg/Ml Vial) 15 mg IV Q6H PRN PRN Reason: Pain Stop: 02/08/23 14:59 Last Admin: 02/04/23 04:07 Dose: 15 mg Magnesium Hydroxide (Magnesium Hydroxide Susp 30 Ml Udc) 30 ml PO Q12H PRN PRN Reason: Constipation Stop: 03/05/23 12:30 Miscellaneous (Remove Nicoderm Patch) 1 each N/A DAILY@0859 [facility] Stop: 03/06/23 08:58 Last Admin: 02/04/23 08:25 Dose: 1 each Nicotine (Nicotine 14 Mg/24 Hr Patch) 14 mg TD QAM [facility] Stop: 03/05/23 13:14 Last Admin: 02/04/23 08:44 Dose: 14 mg Phenazopyridine HCl (Phenazopyridine Hcl 200 Mg Tab) 200 mg PO Q8H PRN PRN Reason: pyelonephritis Stop: 03/05/23 12:56 Sertraline HCl (Sertraline Hcl 100 Mg Tablet) 100 mg PO DAILY [facility] Stop: 03/06/23 08:59 Last Admin: 02/04/23 08:44 Dose: 100 mg
[2023-02-04 13:18] LABS: Cdiff Toxin B Gene (2yr or >) Positive Cdiff Gene (Neg)
[2023-02-04 14:01] LABS: Cdiff Antigen Positive; Cdiff Toxin A+B Negative Cdiff Toxin (Negative)
[2023-02-04] MEDS ORDERED: ONDANSETRON INJ 2 MG/ML 2 ML VIAL ONE (14:02)
[2023-02-04] MEDS ORDERED: fentaNYL citrate PF 100 MCG/2 ML VIAL ONE (14:02)
[2023-02-04] MEDS ORDERED: PROPOFOL IV EMULSION 10 MG/ML 20 ML VIAL IV ONE (14:02)
[2023-02-04] MEDS ORDERED: MIDAZOLAM HCL 1 MG/ML 2ML VIAL ONE (14:02)
[2023-02-04] MEDS ORDERED: LIDOCAINE 2% 2 ML VIAL/AMP(20MG/ML) INFIL ONE (14:02)
[2023-02-04] MEDS ORDERED: DEXAMETHASONE SOD INJ 4 MG/ML VIAL ONE (14:02)
[2023-02-04] MEDS ORDERED: ePHEDrine sulfate 50 MG/ML AMP IV PRN (14:59)
[2023-02-04] MEDS ORDERED: HYDROmorphone INJ 2 MG/ML SYR/VIAL IV PRN (14:59)
[2023-02-04] MEDS ORDERED: ATROPINE SULFATE 0.1 MG/ML 10ML SYR IV PRN (14:59)
[2023-02-04] MEDS ORDERED: fentaNYL citrate PF 100 MCG/2 ML VIAL IV PRN (14:59)
[2023-02-04] MEDS ORDERED: ONDANSETRON INJ 2 MG/ML 2 ML VIAL IV PRN (14:59)
--- NOTE | 2023-02-04 14:59 | Anesthesiology Consultation ---
Date of Service February 04, 2023 Assessment & Plan ASA ASA2 Proposed Anesthesia Anesthesia Type: General Risk / Benefits Reviewed With: PT / POA / Parent / Guardian, Accepts Plan and Informed Consent Obtained History Surgery Operation Date: 02/04/23 15:00 Proposed Procedures p Cystoscopy, Bilateral Retrograde Pyelogram, Possible Stents Bilateral, Possible Ureteroscopy, Possible Laser and Stone Treatment - Goyo Baldwin, DO Height/Weight Height: 5 ft 5 in Weight: 63.8 kg Allergies Allergy/AdvReac Type Severity Reaction Status Date / Time No Known Drug Allergies Allergy Verified 01/25/23 12:02 Medications Home Medications Medication Instructions Recorded Confirmed Last Taken levonorgestrel 21 mcg/24 hours (8 1 device intrauterine DIRECTED 03/26/19 02/03/23 Unknown yrs) 52 mg intrauterine device (Mirena) sertraline 100 mg tablet 100 mg PO DAILY 09/24/22 02/03/23 Unknown hydrocodone 5 mg-acetaminophen 325 1 - 2 tab PO Q6H PRN pain #20 tabs 10/30/22 02/03/23 Unknown mg tablet ondansetron 4 mg disintegrating 4 mg PO Q6H PRN nausea and 10/30/22 02/03/23 Unknown tablet vomiting #20 tabs nitrofurantoin 100 mg PO BID 7 days #14 caps 01/31/23 02/03/23 Unknown monohydrate/macrocrystals 100 mg capsule (Macrobid) varenicline 1 mg tablet 1 mg PO DIRECTED 02/03/23 02/03/23 Unknown Active Medications Generic Name Dose Route Start Last Admin Trade Name Freq PRN Reason Stop Dose Admin Al Hydrox/Mg Hydrox/Simethicone 15 ml 02/03/23 12:31 02/04/23 11:11 Aluminum/Magnesium Susp 30 Ml Udc PO 03/05/23 12:30 15 ml Q4H PRN Administration Dyspepsia Enoxaparin Sodium 40 mg 02/03/23 13:15 02/04/23 10:23 Enoxaparin Inj 40 Mg/0.4 Ml Syr SQ 03/05/23 13:14 Not Given QAM VARUN Cefepime HCl 2,000 mg/ Syringe 20 mls @ 5 mls/min 02/03/23 13:30 02/04/23 12:51 IV 02/13/23 13:29 5 mls/min Q12H VARUN Administration Protocol Ketorolac Tromethamine 15 mg 02/03/23 15:00 02/04/23 04:07 Ketorolac Tromethamine 15 Mg/Ml Vial IV 02/08/23 14:59 15 mg Q6H PRN Administration Pain Miscellaneous 1 each 02/04/23 08:59 02/04/23 08:25 Remove Nicoderm Patch N/A 03/06/23 08:58 1 each DAILY@0859 VARUN Administration Nicotine 14 mg 02/03/23 13:15 02/04/23 08:44 Nicotine 14 Mg/24 Hr Patch TD 03/05/23 13:14 14 mg QAM VARUN Administration Sertraline HCl 100 mg 02/04/23 09:00 02/04/23 08:44 Sertraline Hcl 100 Mg Tablet PO 03/06/23 08:59 100 mg DAILY VARUN Administration NPO Date Last Intake of Fluids: 02/03/23 Time Last Intake of Fluids: 21:00 Date Last Intake of Solids: 02/03/23 Time Last Intake of Solids: 19:00 Past Medical History Medical History Anemia Anxiety Bronchitis Depression Nausea Tobacco use Exercise / Class Metabolic Activity II 4-5 Yardwork/Stairs/Walk up hill Past Family History Family History Father Bone cancer Prostate cancer Hypertension Sister Endometriosis Hypertension Aunt Breast cancer maternal Hypertension Mother Hypertension Other Alcoholism Depression Osteoporosis Denies family history of Ovarian cancer Colorectal cancer Past Surgical History Surgical History History of dental surgery Nettie teeth extracted Past Anesthesia History No Hx of Anesthesia Complications and No Family Hx of Anesthesia Complications History of PONV No Hx of PONV and No Hx of Motion Sickness Social History Smoking Status: Current every day smoker tobacco type: cigarettes Do You Dip or Chew Tobacco: No Hx Alcohol Use: No substance use type: marijuana Substance Use Type Other:: medical Last Used Substance: Days (ago) Last Used Substance Other:: 1 Review of Systems denies fever/cough/ colds/ chest pain/ SOB/ NIVIA denies NIVIA Physical Exam Vital Signs Last Vital Signs Temp 36.9 C 02/04/23 14:06 Pulse 77 02/04/23 14:06 Resp 100 H 02/04/23 14:06 BP 119/55 L 02/04/23 14:06 Pulse Ox 100 02/04/23 14:06 O2 Del Method Room Air 02/04/23 14:06 ENMT Mouth: no TMJ abnormality and no dentition abnormality Thyromental Distance: > or= 3.5 Finger Breadths Mallampati Class: II Neck neck extension not limited Respiratory normal respiratory effort; no respiratory distress Auscultation: lungs clear to auscultation bilaterally Cardiovascular Rate/Rhythm: regular rate and regular rhythm Neurologic moves all extremities Psychiatric Orientation: alert and oriented x 3 Testing Laboratory Results 02/04/23 05:50 02/04/23 05:50 Urine Color Yellow 02/03/23 09:36 Urine Appearance Clear (Clear) 02/03/23 09:36 Urine pH 7.5 (4.5-7.5) 02/03/23 09:36 Ur Specific [place] 1.008 (1.000-1.030) 02/03/23 09:36 Urine Protein Negative (Negative) 02/03/23 09:36 Urine Glucose (UA) Negative (Negative) 02/03/23 09:36 Urine Ketones Negative (Negative) 02/03/23 09:36 Urine Nitrite Negative (Negative) 02/03/23 09:36 Ur Leukocyte Esterase Trace (Negative) H 02/03/23 09:36 Urine WBC (Auto) 1-5 /hpf (0-5) 02/03/23 09:36 Urine RBC (Auto) 0-4 /hpf (0-4) 02/03/23 09:36 U Hyaline Cast (Auto) 1-5 /lpf (0-5) 02/03/23 09:36 U Epithel Cells (Auto) 20-30 /lpf (0-5) H 02/03/23 09:36 Urine Bacteria (Auto) Negative (Negative) 02/03/23 09:36 02/03/23 09:36 Urine Culture - Preliminary Urine,Clean Catch No growth - Less than 1,000 colonies/mL, Final report to follow. 02/03/23 09:36 POC Ur Test NEG
[2023-02-04] MEDS ORDERED: DIATRIZOATE MEGLUMINE 30% 100ML VIAL INSTIL ONE (15:23)
--- NOTE | 2023-02-04 15:34 | Operative Report ---
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 Stricture was dilated and stone was destroyed to dust and small fragments and larger fragments removed. Right Side: No significant obstruction or drainage issue on the right. Possible small stones on imaging Specimens Stone Fragments - Left Ureter Drains 4.8 Fr Multilength on left Anesthesia Type General Complications none Disposition Disposition: Recovery Room Indications Patient with bothersome stones. Risks and benefits discussed at length. Description of Procedure Patient was consented and brought back to the operating room. Patient was placed under anesthesia in the supine position and moved to the dorsal lithotomy position. Patient was prepped and draped in the regular sterile fashion. A time out was completed. A 30degree Cystoscope was placed into the bladder and the entire bladder was examined. The UO's were identified. The UO was cannulized with a catheter and a retrograde pyelogram was completed. This was completed on the right first. No significant obstruction. No significant hydro or filling defects. On drainage film, the kidney emptied without major issues. Attention was then taken to the left. A retrograde pyelogram was completed and it appeared there was a narrowing of the distal ureter with a filling defect, possibly the stone. A wire was then placed. The Rigid ureteroscope was taken into the ureter. The stone was identified just proximal to a significant stricture. The stricture was dilated. A laser fiber was selected and the stones were pulverized to dust and small fragments. Larger fragments were grasped and removed and sent for analysis. The entire area was once again examined. No residual large fragments or areas of concern were noted. The scope was slowly removed with the wire left in place. Contrast was placed through the scope for a pyelogram to assist in stent placement. The entire ureter was examined as the scope was slowly removed. No o bstructions or other areas of concern were noted. With the wire in place, a 6 Fr Double J stent was placed. It was confirmed with fluoroscopy. With the stent in place, the bladder was emptied. The scope was removed. The patient was cleaned, aroused from anesthesia, and transferred to the pacu in stable condition having tolerated the procedure well with no complications. I was present and participated in all aspects of the procedure. The patient will be monitored in the PACU until transferred. Plan for stent removal in approx 7 days in office. I attest to the content of the Intraoperative Record and any orders documented therein. Any exceptions are noted below.
--- NOTE | 2023-02-04 16:26 | Anesthesiology Progress Note ---
Date of Service February 04, 2023 Anesthesia Post Procedure Vital Signs Vital Signs: Temp Pulse Pulse Pulse Resp BP Pulse Ox 02/04/23 15:55 59 L 18 95/55 L 100 02/04/23 16:25 36.6 C 79 15 112/67 99 02/04/23 16:15 97 H 13 98/61 L 99 02/04/23 16:05 60 17 102/55 L 100 02/04/23 15:45 60 16 95/51 L 100 02/04/23 15:39 36.1 C L 56 L 13 91/44 L 100 02/04/23 14:06 36.9 C 77 100 H 119/55 L 100 02/04/23 08:00 36.8 C 69 18 103/68 99 02/04/23 07:00 36.8 C 73 18 94/63 L 98 02/04/23 07:24 65 02/04/23 04:12 36.6 C 71 18 119/70 100 02/03/23 22:00 64 02/03/23 22:00 36.6 C 67 18 110/69 97 O2 Del Method O2 Flow Rate 02/04/23 15:55 Nasal Cannula 2 02/04/23 16:25 Room Air 02/04/23 16:15 Room Air 02/04/23 16:05 Nasal Cannula 2 02/04/23 15:45 Nasal Cannula 2 02/04/23 15:39 Nasal Cannula 2 02/04/23 14:06 Room Air 02/04/23 08:00 Room Air 02/04/23 07:00 Room Air 02/04/23 07:24 02/04/23 04:12 Room Air 02/03/23 22:00 02/03/23 22:00 Room Air Pain Intensity Flank: Pain Intensity: 3 Transfer of Care Handoff Completed per policy Notes Mental Status: alert / awake / arousable and participated in evaluation Patient Amnestic to Procedure: Yes Nausea / Vomiting: adequately controlled Pain: adequately controlled Airway Patency, RR, SpO2: stable & adequate BP & HR: stable & adequate Hydration State: stable & adequate Anesthetic Complications: no major complications apparent and Pt Satisfied with anesthetic care
--- NOTE | 2023-02-04 16:30 | Fluoroscopy Report ---
FL retrograde includes kub CLINICAL HISTORY: B/ STENT TECHNIQUE: 4 views were obtained with the C-arm in the OR with the above procedure. Total fluoroscopy time was 27.3 seconds. Radiation dose was 2.63 mGy. Comparison: Comparison is made to CT abdomen pelvis 02/03/2023 FINDINGS/IMPRESSION: Intraoperative images were obtained of bilateral cystogram and right retrograde pyelogram as well as left stent placement. Please correlate with intraoperative fluoroscopy and operative report. ACT 112: Negative or not required by law. Electronically signed by: Augustine Thurman M.D. 02/04/2023 4:28 PM
[2023-02-04] MEDS: PHENAZOPYRIDINE HCL 200 MG TAB PO PRN (18:14)
[2023-02-05] MEDS: CEFEPIME 2,000 MG in SYRINGE 0 ML IV SCH ×2 (01:17→13:11)
[2023-02-05] MEDS: ACETAMINOPHEN 325 MG TAB PO PRN ×2 (01:18→07:19)
[2023-02-05] MEDS: KETOROLAC TROMETHAMINE 15 MG/ML VIAL IV PRN ×3 (02:47→15:42)
[2023-02-05] MEDS: PHENAZOPYRIDINE HCL 200 MG TAB PO PRN ×2 (03:09→13:08)
[2023-02-05 06:31] LABS: Basophils # (auto) 0.01 K/uL (0-0.2); Basophils % (auto) 0.1 %; Hematocrit (blood only) 33.5 % (37.0-47.0); Hemoglobin 11.8 g/dl (12.0-16.0); Immature Granulocytes # (auto) 0.02 K/uL (0.01-0.20); Immature Granulocytes % (auto) 0.2 %; Lymphocytes # (auto) 0.77 K/uL (1.2-3.4); Lymphocytes % (auto) 9.4 %; Mean Corpuscular Hemoglobin 33.1 pg (25.0-34.0); Mean Corpuscular Hgb Conc 35.2 g/dL (32.0-36.0); Mean Corpuscular Volume 93.8 fL (80.0-100.0); Mean Platelet Volume 12.2 fL (9.4-12.4); Monocytes # (auto) 0.39 K/uL (0.11-0.59); Monocytes % (auto) 4.8 %; Neutrophils # (auto) 6.96 K/uL (1.40-6.50); Neutrophils % (auto) 85.5 %; Platelet Count 157 K/uL (130-400); RDW Coefficient of Variation 12.4 % (11.5-14.5); RDW Standard Deviation 43.3 fL (36.4-46.3); Red Blood Count 3.57 M/uL (4.20-5.40); White Blood Count 8.15 K/ul (4.8-10.8)
[2023-02-05 06:57] LABS: BUN Creatinine Ratio 32.8 (10-20); Calcium 8.7 mg/dl (8.6-10.3); Est GFR (African American) 126.7 ml/min; Est GFR (Non-African American) 109.3 ml/min; Potassium 4.3 mmol/L (3.5-5.1)
--- NOTE | 2023-02-05 07:42 | Urology Progress Note ---
Date of Service February 05, 2023 Assessment & Plan (1) Left ureteral stone: (2) Flank pain: (3) Painful urination: Plan 42yo/F admitted with bladder/flank pain and UTI like symptoms. CT abdomen pelvis demonstrated bilateral urothelial thickening with perinephric stranding suspicious for ascending UTI with pyelonephritis, punctate right renal stone, 5mm distal left ureteral stone. POD #1 s/p Cystoscopy, Bilateral Retrograde Pyelogram, Left Stent, Left Ureteroscopy, Laser and Stone Treatment Left Feeling well, tolerating the stent with minimal bother. She is afebrile and hemodynamically stable. Labs show no leukocytosis and normal renal function. Urine and blood cultures are preliminary no growth. Continues on IV cefepime. Follow cultures. Okay for discharge from perspective when medically stable. Recommend d/c with course of PO antibiotics per final culture or short course of Bactrim/Cipro if no growth shown on final cultures. Also recommend Tamsulosin, prn Pyridium and prn pain medication for stent management. Will arrange outpatient follow-up with our service for stent removal and continued care. Expected clinical course reviewed, all questions answered. Urology will sign-off. Please contact us with any further questions, concerns, or change in patient status. Admission and Anticipated Discharge Date Admission Date: February 03, 2023 Subjective Pt examined at bedside this AM. Awake, resting in bed on arrival. No acute distress. Feeling ok, tolerating the stent with minimal bother. Some discomfort now on the left side likely d/t the stent. Denies fevers, chills, nausea, vomiting. Voiding without issue, some hematuria and dysuria as expected. Review of Systems Constitutional: as per Subjective / HPI Gastrointestinal: as per Subjective / HPI Genitourinary: as per Subjective / HPI Physical Exam Constitutional: well developed and well nourished; no acute distress Respiratory: normal respiratory effort; no respiratory distress and no labored breathing Neurologic: moves all extremities and awake Psychiatric: A+Ox3, euthymic affect Results & Data Vital Signs (Past 12 Hours) Vital Signs Temp Pulse Pulse Resp BP BP Pulse Ox 02/05/23 07:34 36.9 C 57 L 18 117/69 98 02/05/23 07:13 61 02/05/23 00:59 63 02/04/23 22:00 36.8 C 65 18 115/68 99 O2 Del Method 02/05/23 07:34 Room Air 02/05/23 07:13 02/05/23 00:59 02/04/23 22:00 Room Air PG Care Time/CCT Total # of Minutes Spent Total Time Spent with Patient: Total time spent is greater than 50% in coordination of care (as documented) at patient's floor/unit and/or counseling patient: Coding Level of Care Code 45528 SUB INP/OBS CARE 2/35MIN Diagnoses Left ureteral stone N20.1 Flank pain R10.9 Painful urination R30.9
[2023-02-05] MEDS: NICOTINE 14 MG/24 HR PATCH TD SCH (08:42)
[2023-02-05] MEDS: SERTRALINE HCL 100 MG TABLET PO SCH (08:42)
[2023-02-05] MEDS: ENOXAPARIN INJ 40 MG/0.4 ML SYR SQ SCH (08:42)
[2023-02-05] MEDS ORDERED: CIPROFLOXACIN 500 MG TAB PO SCH (11:30)
--- NOTE | 2023-02-05 11:49 | Hospitalist Progress Note ---
Date of Service February 05, 2023 Assessment & Plan (1) Pyelonephritis: (2) Bilateral flank pain: (3) Nausea: (4) Depression: (5) Tobacco use: Plan Ms. Mei presents with bladder pressure and constant urinary urgency, no pain with micturition, no burning, no visual hematuria; but outpatient urinalysis revealed microhematuria. Yesterday, she reports increased bladder pressure with dull achy pain in the right flank area with some radiation into her groin. Last Saturday, patient had UA as outpatient. Has taken Macrobid in October when he symptoms originally started. She has taken two days of Macrobid so far this time around. No leukocytosis and does not appear toxic. We will keep her NPO, start Cefepime Q12 and Pyridium PRN with pain and symptom control. Urine and blood cultures pending. Will consult Urology. Possible pyelonephritis: Bilateral flank pain: Nausea: Admit to Med/Surg Tele Known h/o Pyelonephritis; follows with [facility] [place] Urology R > L flank pain Abdominal/pelvic CT: bilateral urothelial thickening with perinephric stranding suspicious for an ascending urinary tract infection with pyelonephritis. Correlate with urinalysis. Punctate right renal calculus. Additionally, there is a 5 mm left pelvic basin calcification near the distal left ureter which is likely a phlebolith. A distal ureteral calculus without obstructive uropathy considered less likely. No bowel obstruction or bowel wall thickening. Colonic diverticulosis. No leukocytosis; does not appear toxic Urine and blood cultures pending NPO for now cefepime every 12 for complicated UTI ,IVF @ 60mL/hour x2 bags ,Pyridium as needed and antiemetics as needed Continue current antibiotic for now Appreciate urology input and recommendation Likely much better without any symptoms As per radiologic diagnosis and urologic manipulation even though there is no evidence of culture positive urine and the blood she will be given Cipro to continue for the next 7 days Patient is agreeable to that Plan for cystoscopy, bilateral retrograde pyelogram, possible stent bilateral and possible ureteroscopy and possible laser and stone treatment 1722 Awaiting further recommendation from urologist after the procedure Status post left ureteric stent placement Urine and blood cultures have been negative We will continue antibiotic with Cipro for the next 7 days Will have removal of the stent in neurological office next week Depression and anxiety: Takes Sertraline; continue Has medical marijuana for anxiety Remains stable without any symptoms of delirium and her anxiety Tobacco Use: Smokes cigarettes 1 pack/day Recently stopped using Chantix as she felt it was contributing to her symptoms Receptive of nicotine patch; ordered Disposition: PCP: Dr. Michael CODE STATUS: Full code VTE prophylaxis: Lovenox SQ Likely discharge this afternoon Admission and Anticipated Discharge Date Admission Date: February 03, 2023 Subjective 02/04/2023 The patient was seen and examined in medical telemetry unit She feels a little better but is still has right lower back pain Has had 1 episode of nausea but no vomiting No fever and no chills and denies any urinary symptoms or hematuria 02/05/2023 The patient was seen and examined in medical telemetry unit She has been feeling much better following the urological procedure Denies any fever and or chills, no dysuria and hematuria is clearing up Pain is almost resolved Review of Systems Review of Systems: All systems reviewed and are unremarkable except as noted below Physical Exam Physical Exam: Lying in bed comfortably Constitutional: + ill appearing and average body habitus Eyes: PERRL, conjunctivae normal, anicteric sclerae ENMT: external ear and nose normal, oropharynx normal Neck: trachea midline, no thyromegaly Respiratory: no respiratory distress Auscultation: lungs clear to auscultation bilaterally Cardiovascular: Rate/Rhythm: regular rate and regular rhythm; not tachycardic Heart Sounds: normal S1 and normal S2; no murmur Extremities: no edema Gastrointestinal (Abdomen): Inspection/Auscultation: normal bowel sounds; abdomen not distended Percussion/Palpation: abdomen soft; abdomen nontender (Tender right renal angle) Musculoskeletal: No acute arthritis involving any joint Neurologic: normal touch/pain/proprioception and moves all extremities; no focal motor deficits Psychiatric: A+Ox3, euthymic affect Lymphatic: no cervical or axillary lymphadenopathy Results & Data Results & Data Vital Signs (Past 12 Hours) Vital Signs Temp Pulse Pulse Resp BP Pulse Ox O2 Del Method 02/05/23 07:34 36.9 C 57 L 18 117/69 98 Room Air 02/05/23 07:13 61 02/05/23 00:59 63 Laboratory Results Short CBC 02/05/23 Range/Units 05:45 WBC 8.15 (4.8-10.8) K/ul Hgb 11.8 L (12.0-16.0) g/dl Hct 33.5 L (37.0-47.0) % Plt Count 157 (130-400) K/uL BMP 02/05/23 05:45 Sodium 137 Potassium 4.3 Chloride 108 H Carbon Dioxide 22 BUN 21 Creatinine 0.64 Glucose 123 H Calcium 8.7 Medications Administered Current Inpatient Medications Acetaminophen (Acetaminophen 325 Mg Tab) 650 mg PO Q4H PRN PRN Reason: Pain or Fever Stop: 03/05/23 12:30 Last Admin: 02/05/23 07:19 Dose: 650 mg Ciprofloxacin (Ciprofloxacin 500 Mg Tab) 500 mg PO BID [facility]; Protocol Stop: 02/15/23 11:29 Enoxaparin Sodium (Enoxaparin Inj 40 Mg/0.4 Ml Syr) 40 mg SQ QAM [facility] Stop: 03/05/23 13:14 Last Admin: 02/05/23 08:42 Dose: 40 mg Cefepime HCl 2,000 mg/ Syringe 20 mls @ 5 mls/min IV Q12H [facility]; Protocol Stop: 02/13/23 13:29 Last Admin: 02/05/23 01:17 Dose: 5 mls/min Ketorolac Tromethamine (Ketorolac Tromethamine 15 Mg/Ml Vial) 15 mg IV Q6H PRN PRN Reason: Pain Stop: 02/08/23 14:59 Last Admin: 02/05/23 08:48 Dose: 15 mg Magnesium Hydroxide (Magnesium Hydroxide Susp 30 Ml Udc) 30 ml PO Q12H PRN PRN Reason: Constipation Stop: 03/05/23 12:30 Miscellaneous (Remove Nicoderm Patch) 1 each N/A DAILY@0859 [facility] Stop: 03/06/23 08:58 Last Admin: 02/05/23 08:42 Dose: 1 each Nicotine (Nicotine 14 Mg/24 Hr Patch) 14 mg TD QAM [facility] Stop: 03/05/23 13:14 Last Admin: 02/05/23 08:42 Dose: 14 mg Phenazopyridine HCl (Phenazopyridine Hcl 200 Mg Tab) 200 mg PO Q8H PRN PRN Reason: pyelonephritis Stop: 03/05/23 12:56 Last Admin: 02/05/23 03:09 Dose: 200 mg Sertraline HCl (Sertraline Hcl 100 Mg Tablet) 100 mg PO DAILY [facility] Stop: 03/06/23 08:59 Last Admin: 02/05/23 08:42 Dose: Not Given
--- NOTE | 2023-02-05 16:56 | Discharge Summary ---
Date of Service February 05, 2023 Admission HPI Per Admitting Provider Ms. Mei is a 42 year old female that presented to the [facility] today with bladder pressure and constant urinary urgency, no pain with micturition, no burning, no visual hematuria; but outpatient urinalysis revealed microhematuria. Yesterday, she reports increased bladder pressure with dull achy pain in the right flank area with some radiation into her groin. Reports chills, but no reported fever. Denies nocturia, polyuria. Describes weak stream urination and delayed emptying and bladder retention. Last Saturday, patient had UA as outpatient. Has taken Macrobid in October when he symptoms originally started. She has taken two days of Macrobid so far as an outpatient. One episode of diarrhea a few days ago, otherwise normal bowel consistency. Patient has a known history of pyelonephritis and microscopic hematuria. She follows with [facility] urology with her last appointment on 01/25/2023. She was having unresolved recurrent urinary tract infections which has started back in August with pyelonephritis in October. Conservative measures have been recommended as an outpatient including increasing hydration, maintaining good hygiene, routine bowel regimen. Cystoscopy was discussed but not performed as of date. Patient denies MURPHY, dizziness, SOB, chest pain, palpitations, nausea, vomiting, diarrhea, visual or auditory changes, no recent falls or trauma. Pt did receive Torodol in the ED with relief. Today, abdominal and pelvic CT revealed bilateral urothelial thickening with perinephric stranding suspicious for an ascending urinary tract infection with pyelonephritis. Correlate with urinalysis. Punctate right renal calculus. Additionally, there is a 5 mm left pelvic basin calcification near the distal left ureter which is likely a phlebolith. A distal ureteral calculus without obstructive uropathy considered less likely. No bowel obstruction or bowel wall thickening. Colonic diverticulosis. No leukocytosis and does not appear toxic. We will keep her NPO, start Cefepime Q12 and Pyridium PRN with pain and symptom control. Urine and blood cultures pending. Will consult Urology. Pt currently smokes 1 ppd cigarettes. She uses medical marijuana for anxiety. She denies alcohol use. Pt recently discontinued using Chantix as she felt it may be contributing to her symptoms. Pt is sitting upright in her hospital bed in no apparent distress. She was accompanied by her , Murali, and is able to appropriately answer all questions. On examination, she Patient will be admitted to the hospital for further available and management. Admission Exam Per Admitting Provider Physical Exam: Neuro: AAOx4, PERRLA, no aphagia, memory changes, CNII-XII grossly intact HEENT: head normocephalic, moist mucus membranes CV: S1/S2, (-) M/G/R, (-) edema, cap refill < 3 seconds Resp: Lungs CTA in all rob. On RA GI: Abdomen S/NT/ND, Ax4 bowel sounds, (+) CVA tenderness on right Musculoskeletal: 5/5 B/L UE strength, 5/5 B/L LE strength. No gait disturbance Skin: (-) rashes , (-) erythema. Psych: euthymic mood Principal Diagnosis Possible pyelonephritis, status post cystoscopy and left ureteric stent placement Discharge Exam Lying in bed comfortably Constitutional + ill appearing and average body habitus Eyes PERRL, conjunctivae normal, anicteric sclerae ENMT external ear and nose normal, oropharynx normal Neck trachea midline, no thyromegaly Respiratory no respiratory distress Auscultation: lungs clear to auscultation bilaterally Cardiovascular Rate/Rhythm: regular rate and regular rhythm; not tachycardic Heart Sounds: normal S1 and normal S2; no murmur Extremities: no edema Gastrointestinal (Abdomen) Inspection/Auscultation: normal bowel sounds; abdomen not distended Percussion/Palpation: abdomen soft; abdomen nontender (Tender right renal angle) Neurologic normal touch/pain/proprioception and moves all extremities; no focal motor deficits Psychiatric A+Ox3, euthymic affect Lymphatic no cervical or axillary lymphadenopathy Discharge Data Allergies Allergy/AdvReac Type Severity Reaction Status Date / Time No Known Drug Allergies Allergy Verified 01/25/23 12:02 Consultations 02/03/23 12:34 ED Decision to Admit Stat 02/03/23 12:46 Consult Urology Routine Procedures Performed Operation Date: 02/04/23 15:00 Actual Procedures p Cystoscopy, Bilateral Retrograde Pyelogram, Left Stent, Left Ureteroscopy, Laser and Stone Treatment Left(Bilateral) - Goyo Baldwin, DO Ordered Studies 02/03/23 10:33 CT abd pelvis wo con Stat 02/04/23 [place] retrograde includes kub Routine Hospital Course (1) Pyelonephritis: (2) Bilateral flank pain: (3) Nausea: (4) Depression: (5) Tobacco use: Plan Ms. eMi presents with bladder pressure and constant urinary urgency, no pain with micturition, no burning, no visual hematuria; but outpatient urinalysis revealed microhematuria. Yesterday, she reports increased bladder pressure with dull achy pain in the right flank area with some radiation into her groin. Last Saturday, patient had UA as outpatient. Has taken Macrobid in October when he symptoms originally started. She has taken two days of Macrobid so far this time around. No leukocytosis and does not appear toxic. We will keep her NPO, start Cefepime Q12 and Pyridium PRN with pain and symptom control. Urine and blood cultures pending. Will consult Urology. Possible pyelonephritis: Bilateral flank pain: Nausea: Admit to Med/Surg Tele Known h/o Pyelonephritis; follows with [facility] Urology R > L flank pain Abdominal/pelvic CT: bilateral urothelial thickening with perinephric stranding suspicious for an ascending urinary tract infection with pyelonephritis. Correlate with urinalysis. Punctate right renal calculus. Additionally, there is a 5 mm left pelvic basin calcification near the distal left ureter which is likely a phlebolith. A distal ureteral calculus without obstructive uropathy considered less likely. No bowel obstruction or bowel wall thickening. Colonic diverticulosis. No leukocytosis; does not appear toxic Urine and blood cultures pending NPO for now cefepime every 12 for complicated UTI ,IVF @ 60mL/hour x2 bags ,Pyridium as needed and antiemetics as needed Continue current antibiotic for now Appreciate urology input and recommendation Likely much better without any symptoms As per radiologic diagnosis and urologic manipulation even though there is no evidence of culture positive urine and the blood she will be given Cipro to continue for the next 7 days Patient is agreeable to that Plan for cystoscopy, bilateral retrograde pyelogram, possible stent bilateral and possible ureteroscopy and possible laser and stone treatment 1723 Awaiting further recommendation from urologist after the procedure Status post left ureteric stent placement Urine and blood cultures have been negative We will continue antibiotic with Cipro for the next 7 days Will have removal of the stent in neurological office next week Depression and anxiety: Takes Sertraline; continue Has medical marijuana for anxiety Remains stable without any symptoms of delirium and her anxiety Tobacco Use: Smokes cigarettes 1 pack/day Recently stopped using Chantix as she felt it was contributing to her symptoms Receptive of nicotine patch; ordered Disposition: PCP: Dr. Michael CODE STATUS: Full code VTE prophylaxis: Lovenox SQ Likely discharge this afternoon Total Time Total Time Spent Total Time Spent (In Minutes): 35 minutes Discharge Plan Discharge Items Patient Disposition: Home - Self-Care Reason For Visit: PYELONEPHRITIS Discharge Diagnosis: Possible pyelonephritis, status post cystoscopy and left ureteric stent placement Condition on Discharge: Good Activity: Resume your previous activity Non-emergency contact: Primary Care Provider Call non-emergency contact if: you have any medication questions and your symptoms worsen Follow-up/Referrals: Goyo Baldwin DO [Physician] - (The Urology office will call you with an appointment.) Fernanda Linn PA-C [Primary Care Provider] - (Date & Time 02/12/2023 10:20 AM Provider Raghu Michael III, MD Department [facility] ) Diet: Regular Addtl Attending Provider Instructions: Please take precautions to avoid fall Take your medications as advised Try to drink more fluid Finish the course of antibiotic Addtl Shipping And Receiving Clerk Provider Instructions: Please call the urology office at [phone] with any questions, concerns or need to reschedule appointments for any reason. We are happy to assist you. While you have a ureteral stent in place: Some discomfort is normal. Certain movements may trigger pain or a feeling that you need to urinate. You may also feel mild soreness or pressure before or during urination. These symptoms should go away a few days after the stent is removed. Your urine may be slightly pink or red. This is due to bleeding caused by minor irritation from the stent. This may happen on and off while you have the stent, it is not harmful and is to be expected. Medication to help minimize discomfort or bladder spasms, or to prevent infection may be prescribed. Take this as directed. Drink plenty of fluids to help flush out your urinary tract. How long will you need a stent? The urology office will contact you to arrange a follow-up visit for stent removal. When to call [facility] Urology at [phone]: Your urine contains heavy blood clots or you are unable to urinate. You are constantly leaking urine. Fever of 101F or higher, chills, nausea, or vomiting. Your pain is not relieved with medication. The end of the stent comes out of your urethra. Pending Studies at Discharge: No Stand-Alone Forms: My [facility], Smoking Cessation Medications and DC Order Prescriptions: New ciprofloxacin HCl 500 mg Tablet 500 mg PO BID 5 Days Qty: 10 0RF Continued Mirena 20 mcg/24 hours (5 yrs) 52 mg intrauterine device 1 device IU DIRECTED Patient Comments: inserted on 07/05/16 sertraline 100 mg tablet 100 mg PO DAILY hydrocodone-acetaminophen 5-325 mg tablet 1 - 2 tab PO Q6H PRN (Reason: pain) Qty: 20 0RF Rx Instructions: Initial Treatment ondansetron 4 mg tablet,disintegrating 4 mg PO Q6H PRN (Reason: nausea and vomiting) Qty: 20 0RF varenicline 1 mg tablet 1 mg PO DIRECTED Rx Instructions: Hasn't been able to take consistently Discontinued nitrofurantoin monohyd/m-cryst [Macrobid] 100 mg capsule 100 mg PO BID 7 Days Qty: 14 0RF Rx Instructions: must administer with a meal/food Discharge Orders: Discharge Order (Routine); Ordered 02/05/23 Ordered By: Romeo Schmidt Admission Data Admit Date/Time: 02/03/23 13:59 Attending Provider: Romeo Schmidt Admit Provider: Daniel Coe Primary Care Provider: Fernanda Linn Other Providers: Daniel Coe ; Bruce Diallo Other Interventions: Discharge Summary Assessment (RN) Last Done: 02/05/23 15:00
--- NOTE | 2023-02-05 18:02 | Electrocardiogram Report ---
Test Reason : Blood Pressure : / mmHG Vent. Rate : 056 BPM Atrial Rate : 056 BPM P-R Int : 112 ms QRS Dur : 080 ms QT Int : 450 ms P-R-T Axes : 092 086 065 degrees QTc Int : 434 ms Poor data quality, interpretation may be adversely affected Sinus bradycardia Otherwise normal ECG No previous ECGs available Confirmed by Bruce Pagan ([id number]) on 02/05/2023 6:01:55 PM Referred By: REFERRED SELF Confirmed By:Micheal Pagan
== END 2023-02-05 16:22 | disposition home or self-care (01) ==
LOC: 2N 09:17 → ED 09:17 → SUATTDRO 13:59 → 2N 14:53